=== PATIENT | female | born 1945 | race Caucasian/White ===

== ENCOUNTER 2016-07-24 06:02 | Day surgery (SDC) | payer OTHER ==
[~2016-07-24 06:02] MED LIST: ASPI81TA2 PO; BUPR300T3 PO; CALC-98 PO; LEVO25TA4 PO; MULT-460 PO; RANI150T6 PO
[2016-07-24] MEDS ORDERED: BUPIVAC MPF-EPI 0.5%-1:200000 30 ML VIAL. ONE (06:55)
[2016-07-24] MEDS ORDERED: SURGICEL HEMOSTAT 4X8 EACH. ONE (06:55)
[2016-07-24] MEDS ORDERED: IOHEXOL 300 MG/ML 50 ML VIAL. ONE (06:55)
[2016-07-24] MEDS ORDERED: HYDROmorphone 2 MG/ML VIAL IV PRN (07:00)
[2016-07-24] MEDS ORDERED: fentaNYL PF VIAL 100 MCG/2 ML VIAL IV PRN ×2 (07:00)
[2016-07-24] MEDS ORDERED: LIDOCAINE 1% 1 ML SYRINGE. ID PRN (07:00)
[2016-07-24] MEDS ORDERED: PROCHLORPERAZINE 10 MG/2 ML VIAL. IV PRN (07:00)
[2016-07-24] MEDS ORDERED: IV RINGERS,LACTATED 1000ML 1,000 ML IV SCH (07:00)
[2016-07-24] MEDS ORDERED: MORPHINE SULFATE 2 MG/ML DISP.SYRIN. IV PRN (07:00)
[2016-07-24] MEDS ORDERED: ONDANSETRON PF 4 MG/2 ML VIAL. IV PRN (07:00)
[2016-07-24] MEDS ORDERED: fentaNYL PF VIAL 100 MCG/2 ML VIAL ONE (07:03)
[2016-07-24] MEDS ORDERED: DEXAMETHASONE SOD PHOS 20 MG/5 ML VIAL. ONE (07:04)
[2016-07-24] MEDS ORDERED: LIDOCAINE 2% PF Vial for OR 5 ML VIAL. ONE (07:04)
[2016-07-24] MEDS ORDERED: ONDANSETRON PF 4 MG/2 ML VIAL. ONE ×2 (07:04→08:09)
[2016-07-24] MEDS ORDERED: PROPOFOL 20 ML IV ONE (07:04)
[2016-07-24] MEDS ORDERED: ROCURONIUM 50 MG/5 ML VIAL. ONE (07:07)
[2016-07-24] MEDS ORDERED: NEOSTIGMINE 10 MG/10 ML VIAL. ONE (07:10)
[2016-07-24] MEDS ORDERED: PHENYLEPHRINE in 0.9% NACL PF 1 MG/10 ML DISP.SYRIN. IV ONE (07:47)
[2016-07-24] MEDS ORDERED: GLYCOPYRROLATE 1 MG/5 ML VIAL. ONE (08:10)
[2016-07-24] MEDS ORDERED: KETOROLAC 60 MG/2 ML INJ FOR OR. ONE (08:15)
--- NOTE | 2016-07-24 08:22 | RAD ---
Intraoperative cholangiogram, 07/24/2016: History: Cholecystectomy 3 spot films from surgery are presented for review. Contrast has been injected into the cystic duct remnant. 26 seconds of fluoroscopy time was utilized. Contrast extends into the duodenum. There is a tiny filling defect in the distal common bile duct at the ampulla. The common duct is at the upper limits of normal in size. There is contrast extravasation in the gallbladder fossa and subhepatic regions. The cystic duct is not clearly defined. The incompletely opacified intrahepatic ducts are unremarkable. IMPRESSION: 1. Tiny filling defect in the distal common bile duct at the ampulla raising the possibility of a small calculus versus an air bubble. 2. Contrast extravasation in the gallbladder fossa region may be on a technical basis related to the catheter insertion site in the cystic duct. A biliary leak cannot be excluded.
--- NOTE | 2016-07-24 09:01 | PDOC4 ---
Operative Note Operative Note Operative Note: Preoperative Diagnosis: Calculus cholecystitis Postoperative Diagnosis: Same Procedure: Laparoscopic cholecystectomy with intraoperative cholangiogram Surgeons: Ben Emergency Communications Officer: Casi MUNOZ Anesthesia: Gen. Estimated Blood Loss: 10 mL Specimen: Gallbladder to pathology Drains: None Complications: None Indications: The patient is a 71-year-old female who is been experiencing recurrent upper abdominal pain consistent with biliary colic. Her evaluation included a sonogram which showed gallstones. Surgical treatment was offered by means of a laparoscopic cholecystectomy. The risks of surgery were discussed which include bleeding, infection, bile duct injury, bile leak, pain, the potential for additional surgeries or procedures. The patient understands and would like to proceed. Description: The patient was taken to the operating room and laid supine on the operating table. General anesthesia was performed. The abdomen was prepped with ChloraPrep and draped in a standard surgical fashion. A small infraumbilical incision was made with a scalpel. The Veress needle was then inserted and a pneumoperitoneum was then created. A 5 mm trocar was then inserted and the laparoscope was introduced. In the upper midabdomen a 5 mm trocar was inserted and in the right upper quadrant two 2.3 mm mini lap graspers were inserted. The gallbladder was retracted cephalad. The cystic duct was dissected free from surrounding tissues. One clip was placed on the duct near the gallbladder junction. An opening was made in the duct and a cholangiocatheter placed within and secured with a clip. Using contrast dye and fluoroscopy an intraoperative cholangiogram was performed. The major bile ducts appeared normal. There was a tiny filling defect in the common duct that appeared more consistent with an air bubble and contrast readily passed into the duodenum. There was some extravasation noted which appeared likely due to a stone in the cystic duct which was subsequently extracted. The clip and catheter were then withdrawn. Three clips were placed on the cystic duct and it was divided. The cystic artery was then identified, dissected free, doubly clipped and divided as well. The gallbladder was then mobilized away from the liver with cautery. The umbilical 5 millimeter trocar was exchanged for an 11 millimeter trocar. The gallbladder was then placed in an endoscopic bag and extracted at the umbilical trocar site. The fascia there was closed with a 0 Vicryl sutures. All blood and irrigation fluid was suctioned and hemostasis was good. The remaining ports were removed and the pneumoperitoneum was relieved. The skin incisions were injected with half percent Marcaine with epinephrine, and all were closed using 4-0 Monocryl suture. Steri-Strips and dressings were then applied. The patient tolerated the procedure well and was sent to the recovery room in stable condition. At the end of the case all counts were correct. CHAYO GRIGSBY MD July 24, 2016 09:01
--- NOTE | 2016-07-24 09:03 | DISCH ---
DISCHARGE INSTRUCTIONS Condition on Discharge Condition on Discharge: Stable Activity After Discharge Activity Instructions for Disc: Other, see below (no lifting over 20 lbs) Diet after Discharge Diet after Discharge: Regular Wound Incision Care Wound/Incision Care: Other, see below (may remove bandaids and shower tomorrow , steristrips will fall off over time on their own) Follow-Up Follow up with: Dr Grigsby in 2 weeks in office, please call for appt [phone] CHAYO GRIGSBY MD July 24, 2016 09:03
[2016-07-24] MEDS ORDERED: HYDROcodone/APAP 5/325MG 1 TAB TABLET PO PRN ×2 (09:15)
[2016-07-24] MEDS ORDERED: HYDR-971 PO (09:40)
[2016-07-24 10:11] VITALS: BP 135/61
== END 2016-07-24 10:50 | disposition home or self-care (01) ==
LOC: SURG 06:02
PROVIDERS: ATTEND Surgery
DX: K80.10 Calculus of gallbladder with chronic cholecystitis without obstruction (principal); K21.9 Gastro-esophageal reflux disease without esophagitis; E03.9 Hypothyroidism, unspecified; F32.9 Major depressive disorder, single episode, unspecified; Z79.82 Long term (current) use of aspirin; Z80.3 Family history of malignant neoplasm of breast; Z98.41 Cataract extraction status, right eye; Z72.89 Other problems related to lifestyle
CPT/HCPCS: 47563; 74300; C1769; C1782; J1100; J1885; J2370; J2405; J2704; J2710; J3010; J3490; J7030; J7120; Q9967